=== PATIENT | female | born 1985 | race Caucasian/White ===

== ENCOUNTER 2019-02-17 10:31 | Inpatient (IN) | payer OTHER ==
[~2019-02-17] VITALS: Ht 162.6 cm; Wt 63.0 kg
[2019-02-17] MEDS ORDERED: BETAMET ACET/BETAMET NA PH 30 MG/5 ML VIAL IM ONE (10:45)
[2019-02-17 10:56] LABS: BILIRUBIN,URINE NEGATIVE (NEGATIVE); CLARITY/URINE CLEAR (CLEAR); COLOR,URINE YELLOW (YELLOW); GLUCOSE,URINE NEGATIVE (NEGATIVE); KETONES,URINE NEGATIVE (NEGATIVE); LEUKOCYTE ESTERASE ,URINE 1+ (NEGATIVE); NITRITE, URINE NEGATIVE (NEGATIVE); PH,URINE 5.5 (5.0-8.0); PROTEIN URINE NEGATIVE (NEGATIVE); UROBILINOGEN,URINE 0.2 (0.2-1.0)
[2019-02-17 11:05] LABS: BLOOD, URINE TRACE (NEGATIVE)
[2019-02-17 11:29] LABS: BACTERIA,URINE FEW /HPF (None Seen); MUCUS,URINE 1+ /LPF (None Seen)
[2019-02-17] MEDS: TERBUTALINE SULFATE 1 MG/ML VIAL SUBCUT PRN (11:36)
[2019-02-17] MEDS: NIFEdipine 10 MG CAPSULE PO SCH ×2 (15:41→20:05)
[2019-02-17] MEDS ORDERED: NIFEdipine 10 MG CAPSULE PO ONE (15:45)
[2019-02-17] MEDS: LR 1,000 ML IV SCH (18:35)
[2019-02-18] MEDS: LR 1,000 ML IV SCH ×2 (02:00→20:00)
[2019-02-18] MEDS: NIFEdipine 10 MG CAPSULE PO SCH ×6 (04:00→20:00)
[2019-02-18] MEDS ORDERED: BETAMET ACET/BETAMET NA PH 30 MG/5 ML VIAL IM ONE (11:00)
[2019-02-18] MEDS: TERBUTALINE SULFATE 1 MG/ML VIAL SUBCUT PRN (11:20)
[2019-02-18] MEDS ORDERED: TERBUTALINE SULFATE 1 MG/ML VIAL SUBCUT ONE (11:30)
[2019-02-18] MEDS ORDERED: AMPICILLIN SODIUM 2 GM in NS 100 ML IV ONE (15:00)
[2019-02-18] MEDS ORDERED: AMPICILLIN SODIUM 2 GM VIAL ONE (15:51)
[2019-02-18 16:19] LABS: BASOPHILS % (AUTO) 0.1 % (0.0-2.0); HEMATOCRIT 30.8 % (36-48); HEMOGLOBIN 10.5 g/dL (12.0-16.0); LYMPHOCYTES # (AUTO) 0.6 K/uL (1.0-5.5); MEAN CORPUSCULAR HEMOGLOBIN 33 pg (27-31); MEAN CORPUSCULAR HGB CONC 34 % (32-36); MEAN CORPUSCULAR VOLUME 96 fL (79.0-98.0); MONOCYTES # (AUTO) 0.4 K/uL (0.0-1.0); MONOCYTES % (AUTO) 4.7 % (1.7-9.3); NEUTROPHILS # (AUTO) 7.3 K/uL (1.8-7.7); NEUTROPHILS % (AUTO) 88.2 % (40.0-70.0); PLATELET COUNT (AUTO) 258 K/uL (130-430); RED BLOOD CELL COUNT(AUTO) 3.22 MIL/uL (4.2-6.2); RED CELL DISTRIBUTION WIDTH 12.9 % (9.0-15.0); WHITE BLOOD COUNT (AUTO) 8.2 K/uL (4.8-10.8)
[2019-02-18] MEDS ORDERED: AMPICILLIN SODIUM 1 GM in NS 50 ML IV SCH ×2 (17:00→23:00)
[2019-02-18] MEDS ORDERED: DOCUSATE SODIUM 100 MG CAPSULE PO SCH (21:00)
[2019-02-18 21:01] VITALS: BP_SYST 100
[2019-02-18] MEDS: AMPICILLIN SODIUM 1 GM in NS 50 ML IV SCH (22:00)
[2019-02-19] MEDS: LR 1,000 ML IV SCH (04:00)
[2019-02-19] MEDS: AMPICILLIN SODIUM 1 GM in NS 50 ML IV SCH ×2 (04:00→10:17)
[2019-02-19] MEDS: NIFEdipine 10 MG CAPSULE PO SCH ×4 (04:03→12:00)
[2019-02-19] MEDS ORDERED: SILVER NITRATE APPLICATOR 1 STICK STICK..EA. TP ONE (14:15)
== END 2019-02-19 16:55 | disposition home or self-care (01) | DRG 566 ==
LOC: OBSVTOIN 10:31 → SPU 10:31
PROVIDERS: ADMIT Specialist; ATTEND Specialist
DX: O22.13 Genital varices in pregnancy, third trimester (principal); O46.8X3 Other antepartum hemorrhage, third trimester; Z3A.34 34 weeks gestation of pregnancy
CPT/HCPCS: 36415; 59899; 76805-TC; 81000-TC; 85025; J0290; J0702; J3105; J7120